=== PATIENT | female | born 2005 | race Caucasian/White ===

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

== ENCOUNTER 2024-03-10 13:58 | Emergency (ER) | payer SELFPAY ==
[~2024-03-10] VITALS: Ht 157.5 cm; Wt 65.9 kg
[2024-03-10 14:02] VITALS: TEMP 98.3
[2024-03-10 14:28] LABS: BASO # 0.1 K/mm3 (0.0-0.2); BASO % 0.4 % (0.0-2.0); EOS # 0.1 K/mm3 (0.0-0.7); EOS % 0.5 % (0.0-4.0); GRAN # 9.8 K/mm3 (1.4-6.5); GRAN % 82.8 % (42.2-75.2); HEMATOCRIT 42.4 % (35.0-45.0); HEMOGLOBIN 14.4 g/dl (12.0-15.0); LYMPH # 1.4 K/mm3 (1.2-3.4); LYMPH % 11.8 % (20.0-51.0); MEAN CELL VOLUME 86 fl (80.0-95.0); MEAN CORPUSCULAR HEMOGLOBIN 29 pg (26-32); MEAN CORPUSCULAR HGB CONC 34 g/dl (33.0-37.0); MEAN PLATELET VOLUME 11.2 fl (7.4-10.4); MONO # 0.5 K/mm3 (0.1-0.6); MONO % 4.2 % (1.7-9.3); PLATELET COUNT 288 K/mm3 (130-400); RED BLOOD COUNT 4.95 M/mm3 (4.10-5.30)
[2024-03-10 14:41] LABS: ALANINE AMINOTRANSFERASE 13 U/L (0-55); ALBUMIN 4.5 g/dL (3.5-5.0); ALKALINE PHOSPHATASE 106 U/L (40-150); ANION GAP 13 mmol/L (7-16); AST,SGOT 13 U/L (5-34); BLOOD UREA NITROGEN 9 mg/dL (7-19); CHLORIDE 105 mEq/L (98-107); CREATININE, serum 0.78 mg/dL (0.57-1.11); GLUCOSE 112 mg/dL (70-99); LIPASE 8 U/L (8-78); POTASSIUM 3.8 mEq/L (3.5-4.5); SODIUM 139 mEq/L (136-145); TOTAL PROTEIN 8.1 g/dl (6.2-8.1)
[2024-03-10 14:46] LABS: TROPONIN-I < 0.010 ng/mL (0.00-0.033)
[2024-03-10 15:30] VITALS: BP 113/81; PULSE 87
[2024-03-10] MEDS ORDERED: ATARAX 25MG25 MG/TAB PO (18:27)
== END 2024-03-10 14:46 | disposition home or self-care (01) ==
LOC: COL.ER 13:58
PROVIDERS: Physician Assistant
DX: R07.89 Other chest pain (principal); R00.2 Palpitations

== ENCOUNTER 2024-03-10 17:11 | Emergency (ER) | payer SELFPAY ==
[~2024-03-10] VITALS: Ht 165.1 cm; Wt 65.9 kg
[2024-03-10 17:17] VITALS: TEMP 97.8
[2024-03-10] MEDS ORDERED: LORazepam 0.5 MG TAB PO ONE (17:45)
[2024-03-10] MEDS ORDERED: ATARAX 25MG25 MG/TAB PO (18:27)
[2024-03-10 18:42] VITALS: BP 117/83; PULSE 87
== END 2024-03-10 18:44 | disposition home or self-care (01) ==
LOC: COL.ER 17:11
DX: R07.9 Chest pain, unspecified (principal)

== ENCOUNTER 2024-03-24 20:46 | Emergency (ER) | payer SELFPAY ==
[~2024-03-24] VITALS: Ht 157.5 cm; Wt 65.9 kg
[~2024-03-24 20:46] MED LIST changes: +ATARAX 25MG25 MG/TAB PO
[2024-03-24 20:53] VITALS: TEMP 97.7
[2024-03-24 21:30] LABS: BASO % 0.5 % (0.0-2.0); EOS # 0.1 K/mm3 (0.0-0.7); EOS % 1.5 % (0.0-4.0); GRAN # 5.8 K/mm3 (1.4-6.5); GRAN % 68.5 % (42.2-75.2); HEMATOCRIT 40.5 % (35.0-45.0); HEMOGLOBIN 13.7 g/dl (12.0-15.0); LYMPH # 2.1 K/mm3 (1.2-3.4); LYMPH % 24.6 % (20.0-51.0); MEAN CELL VOLUME 87 fl (80.0-95.0); MEAN CORPUSCULAR HEMOGLOBIN 29 pg (26-32); MEAN CORPUSCULAR HGB CONC 34 g/dl (33.0-37.0); MEAN PLATELET VOLUME 11.1 fl (7.4-10.4); MONO # 0.4 K/mm3 (0.1-0.6); MONO % 4.7 % (1.7-9.3); PLATELET COUNT 247 K/mm3 (130-400); RED BLOOD COUNT 4.67 M/mm3 (4.10-5.30); REDCELL DISTRIBUTION WIDTH-CV 12.1 % (11.5-14.5)
[2024-03-24 21:41] LABS: COLLECTION METHOD CLEAN CATCH
[2024-03-24 21:42] LABS: ALBUMIN 4.5 g/dL (3.5-5.0); BILIRUBIN,TOTAL 0.9 mg/dL (0.2-1.2); CALCIUM 9.8 mg/dL (8.4-10.2); CREATININE, serum 0.76 mg/dL (0.57-1.11); POTASSIUM 3.6 mEq/L (3.5-4.5); TOTAL PROTEIN 7.9 g/dl (6.2-8.1)
[2024-03-24 21:48] LABS: TROPONIN-I 0.016 ng/mL (0.00-0.033)
[2024-03-24 21:51] LABS: PH 6.5 (5.0-8.5); URINE APPEARANCE CLEAR (CLEAR/HAZY); URINE BLOOD NEGATIVE (NEGATIVE); URINE COLOR YELLOW (YELLOW); URINE GLUCOSE NEGATIVE (NEGATIVE); URINE KETONE 1+ (NEGATIVE); URINE NITRATE NEGATIVE (NEGATIVE); URINE PROTEIN(semi-quant) NEGATIVE (NEGATIVE); URINE UROBILINOGEN 0.2 E.U/dL (0.2-1.0)
[2024-03-24 23:11] VITALS: BP 112/59; PULSE 80
== END 2024-03-24 23:11 | disposition home or self-care (01) ==
LOC: COL.ER 20:46
PROVIDERS: Emergency Medicine
DX: R07.89 Other chest pain (principal)